=== PATIENT | female | born 1990 | race Caucasian/White ===

== ENCOUNTER 2023-05-06 14:14 | Emergency (ER) | payer MEDICAID ==
[~2023-05-06] VITALS: Ht 170.2 cm; Wt 65.8 kg
[2023-05-06 14:26] VITALS: BP_SYST 157; PULSE 87; RESP 16; TEMP 98; O2SAT 99
[2023-05-06] MEDS ORDERED: DEXAMETHASONE SOD PHOSPHATE 10 MG/ML VIAL PO ONE (14:45)
[2023-05-06] MEDS ORDERED: GUAI-723 PO (15:28)
[2023-05-06] MEDS ORDERED: NIRM1TAB PO (15:28)
[2023-05-06] MEDS ORDERED: TYLL650 PO (15:28)
[2023-05-06] MEDS ORDERED: ALBMDI INH (15:28)
[2023-05-06] MEDS ORDERED: BENZ100C92 PO (15:28)
[2023-05-06 16:03] VITALS: BP_SYST 147; PULSE 80; RESP 18; TEMP 98.2; O2SAT 100
== END 2023-05-06 15:34 | disposition home or self-care (01) ==
LOC: SED 14:14
DX: U07.1 COVID-19 (principal); Z79.899 Other long term (current) drug therapy
CPT/HCPCS: 99283; J1100